=== PATIENT | male | born 1935 | race Caucasian/White ===

== ENCOUNTER 2022-05-17 14:58 | Inpatient (IN) | payer OTHER ==
[~2022-05-17] VITALS: Ht 172.7 cm; Wt 59.0 kg
[2022-05-17 16:16] LABS: Hematocrit 44.5 % (37.0-53.0); Hemoglobin 15.1 g/dL (13.5-17.5); Mean Corpuscular HGB 33.5 pg (26.0-34.0); Mean Corpuscular HGB Conc 33.9 g/dL (31.5-36.5); Mean Corpuscular Volume 99 fL (80-100); Mean Platelet Volume 10.9 fL (9.1-12.4); Platelet Count 303 K/mm3 (150-400); RDW Coefficient Variation 13.1 % (11.7-14.2); Red Blood Cell Count 4.51 M/mm3 (4.30-5.90)
[2022-05-17 16:17] LABS: White Blood Cell Count 12.19 K/mm3 (4.00-11.30)
[2022-05-17 16:37] LABS: Albumin/Globulin Ratio 0.8 (0.8-1.8); Bilirubin, Total 1.2 mg/dL (0.1-1.0); Bun/Creatinine Ratio 37.3 (12.0-20.0); Calcium, Blood 8.6 mg/dL (8.5-10.1); Creatinine, Blood 0.67 mg/dL (0.60-1.20); Globulin, Blood 3.6 g/dL (2.2-4.0); Potassium, Blood 4.3 mmol/L (3.5-5.5); Total Protein, Blood 6.6 g/dL (6.4-8.2)
[2022-05-17 16:37] LABS: BASOPHILS PERCENT MAN 0 % (0-2); EOSINOPHILS PERCENT MAN 0 % (0-6); LYMPHOCYTES PERCENT MAN 5 % (21-46); MONOCYTES ABSOLUTE MAN 0.48 K/mm3 (0.16-1.47); MONOCYTES PERCENT MAN 4 % (4-13); NEUTROPHILS ABSOLUTE MAN 11.09 K/mm3 (1.96-9.15); SEG NEUTROPHILS PERCENT MAN 91 % (41-73); TOTAL CELLS COUNTED 100
[2022-05-17 19:42] LABS: CHOL/HDL RATIO 2.7; Cholesterol 128 mg/dL (50-200); HDL Cholesterol 48 mg/dL (>39); LDL/HDL RATIO 1.4; Low Density Lipoprotein Chol 67 mg/dL (0-110); Triglycerides 63 mg/dL (30-160); Very Low Density Lipoprot Chol 12 mg/dL (6-32)
[2022-05-17] MEDS ORDERED: FINA5 PO (20:01)
[2022-05-17] MEDS ORDERED: TERA5 PO (20:03)
[2022-05-18 05:39] LABS: BASOPHILS ABSOLUTE AUTO 0.05 K/mm3 (0.00-0.23); BASOPHILS PERCENT AUTO 1 % (0-2); EOSINOPHILS ABSOLUTE AUTO 0.09 K/mm3 (0.00-0.68); EOSINOPHILS PERCENT AUTO 1 % (0-6); Hematocrit 44.8 % (37.0-53.0); Hemoglobin 15.2 g/dL (13.5-17.5); IMMATURE GRAN ABSOLUTE AUTO 0.06 K/mm3 (0.00-0.10); IMMATURE GRAN PERCENT AUTO 1 % (0-1); LYMPHOCYTES ABSOLUTE AUTO 0.94 K/mm3 (0.84-5.20); LYMPHOCYTES PERCENT AUTO 9 % (21-46); MONOCYTES ABSOLUTE AUTO 1.07 K/mm3 (0.16-1.47); MONOCYTES PERCENT AUTO 10 % (4-13); Mean Corpuscular HGB Conc 33.9 g/dL (31.5-36.5); Mean Corpuscular Volume 100 fL (80-100); Mean Platelet Volume 10.8 fL (9.1-12.4); NEUTROPHILS ABSOLUTE AUTO 8.61 K/mm3 (1.96-9.15); NEUTROPHILS PERCENT AUTO 80 % (41-73); Platelet Count 269 K/mm3 (150-400); RDW Coefficient Variation 13.1 % (11.7-14.2); RDW Standard Deviation 48.1 fL (35.1-46.3); Red Blood Cell Count 4.47 M/mm3 (4.30-5.90); White Blood Cell Count 10.82 K/mm3 (4.00-11.30)
[2022-05-18 05:59] LABS: Bun/Creatinine Ratio 28.5 (12.0-20.0); Calcium, Blood 8.3 mg/dL (8.5-10.1); Creatinine, Blood 0.63 mg/dL (0.60-1.20); Potassium, Blood 4.2 mmol/L (3.5-5.5)
--- NOTE | 2022-05-18 06:56 | NUR ---
END OF SHIFT NURSING REPORT - PM Mr Grande admitted to medical for increased SOB over the last week and elevated troponin 194. He presents with Bilateral LE edema, Alert and oriented to self, place and time. Had an episode of confusion this Am and discontinued IV. New IV inserted to Left AC 19g.
[2022-05-18 09:02] LABS: CHOL/HDL RATIO 2.7; Cholesterol 129 mg/dL (50-200); HDL Cholesterol 48 mg/dL (>39); LDL/HDL RATIO 1.4; Low Density Lipoprotein Chol 69 mg/dL (0-110); Triglycerides 59 mg/dL (30-160); Very Low Density Lipoprot Chol 11 mg/dL (6-32)
--- NOTE | 2022-05-18 19:52 | NUR ---
SHIFT SUMMARY- PT ALERT AND ORIENTED TO SELF AND FAMILY. HE SLEPT FOR MOST OF THE DAY, HAD BOWEL AND BLADDER INCONTINENCE T/O THE SHIFT. AT THE END OF THE SHIFT HE WOKE AND WANTED TO SIT IN A CHAIR. HE DID SO, THEN HE BECAME UPSET WITH STAFF ATTEMPTING TO HELP HIM TO THE BATHROOM. HE SEEMED TO BE MORE ALERT AND WAS ASSISTED TO THE BATHROOM THE OPT DOES NOT CALL FOR ASSISTANCE. HE DID HAVE A MEDIUM SIZED BM LIGHT BROWN AND PASTY. CASINO FLOOR SUPERVISOR ASSISTED HIM BACK TO BED AFTER. REPORT COMPLETED WITH NIGHT RN. NO S&S OF DISTRESS NOTED AT THIS TIME.
--- NOTE | 2022-05-19 07:36 | NUR ---
ASSUMED CARE OF PT- PT PULLED OUT HIS IV AT THE START OF THE NIGHT, HE REMOVED MEPILEX AND PULLED OFF TELE LEADS T/O THE NIGHT. PT SEEMS MORE CONFUSED THIS MORNING WHEN COMPARED TO YESTERDAY MORNING. CONFUSED TO PLACE, TIME AND SITUATION. WILL GET IV PLACED FOR IV LASIX DOSING WHEN PT ALLOWS. WILL CALL MD TO SEE IF PO LASIX IS A POSSIBILITY.
--- NOTE | 2022-05-19 07:40 | NUR ---
CALLED DR ARMSTRONG- SHE WILL REVIEW THE NIGHTS EVENTS AND POSSIBLY MAKE SOME CHANGES TO MEDS.
[2022-05-19 10:30] LABS: Albumin, Blood 3.4 g/dL (3.4-5.0); Anion Gap 5 mmol/L (6-16); Blood Urea Nitrogen 21 mg/dL (8-24); Bun/Creatinine Ratio 30.7 (12.0-20.0); CO2, Blood 34 mmol/L (21-32); Calcium, Blood 9.1 mg/dL (8.5-10.1); Chloride, Blood 97 mmol/L (98-108); Creatinine, Blood 0.68 mg/dL (0.60-1.20); Glomerular Filtration Rate 91 (60-); Glucose, Blood 89 mg/dL (70-99); Phosphorus, Blood 2.4 mg/dL (2.5-4.9); Potassium, Blood 4.2 mmol/L (3.5-5.5); Sodium, Blood 136 mmol/L (136-145)
[2022-05-19 12:30] LABS: Anti-Xa UFH, PHA Monitoring <0.10 IU/mL; Prothrombin Time Results 11.5 Sec (9.7-11.5)
--- NOTE | 2022-05-19 17:26 | NUR ---
pt resting in bed keeping neck forard and splinting. Respirations labored. Pt pale denies headache or ringining in ears. states his back is sore and hurts and his breathing feels a little rough. Review his smptoms and needs with nursing. Called his no answer. Called his son with updates. Sons and daughter came in for brief visit. Review of medication and pt needs.Son states steady decline of pt past few months. Of great concern his is declining and he is her caregiver. Theraputic conversation with son on stress of loosing parents. Son is going to discuss his fathers code status with his mother and brother. He confirmed that his father is not able to have complex deciions or retain information. Pt son called back shortly after we hung up. He discussed care with his mother and brother. Pt upset she thought he was DNR. They do not want life support. We discussed the reasonable care he is recieving will continue unless he declines then we will do comfort care. Had cary العراقي RN witness and confirm choice of DNR. Updated physician. will follow up. Suggest hospice referal discussion with physician of recent weight loss and PE may be concern for a malignancy. Goal is to reduce suffering and air hunger and support pt and his and they transition towards end of life.
--- NOTE | 2022-05-19 19:28 | NUR ---
SHIFT SUMMARY- PT ALERT AND ORIENTED TO SELF. T/O THE DAY HE KNEW HE WAS IN THE HOSPITAL, SPECIFICALLY [facility] IN [facility]. TOWARDS THE EVENING HE HAS BECOME A LITTLE MORE CONFUSED. THE PT IS CURRENTLY SITTING UP IN THE CHAIR, CALL LIGHT IN REACH, HEPARIN DRIP INFUSING IN THE LFA IV AND KPHOS INFUSING IN THE AI IV. PT C/O PAIN IN THE KPHOS IV AND RATE WAS REDDUCED TO 75ML/HR FOR PT TOLLERANCE. BEDSIDE REPORT COMPLETED WITH THE NIGHT RN. PT WAS INCREASED TO OXIMEIZER TODAY, HE REMOVED HIS O2 AND HIS SATS DROPPED TO THE 70'S, IT TOOK A WHILE AND A NON REBREATHER TO GET HIS SATS BACK TO A SAFE RANGE. RT WAS CONSULTED AND PT WAS SWITCHED FROM NC TO OXIMEIZER AT 5L. PT REMOVES HIS O2 FREQUENTLY, STAFF HAVE BEEN REMINDING HIM TO KEEP IT IN PLACE. PT HAS NOT ATTEMPTED TO REMOVE HIS IVS AT THIS TIME. NIGHT RN AWARE OF ALL.
[2022-05-20 01:40] LABS: Hematocrit 39.5 % (37.0-53.0); Hemoglobin 13.5 g/dL (13.5-17.5); Mean Corpuscular HGB 33.4 pg (26.0-34.0); Mean Corpuscular HGB Conc 34.2 g/dL (31.5-36.5); Mean Corpuscular Volume 98 fL (80-100); Mean Platelet Volume 10.7 fL (9.1-12.4); Platelet Count 282 K/mm3 (150-400); RDW Coefficient Variation 12.9 % (11.7-14.2); RDW Standard Deviation 46.1 fL (35.1-46.3); Red Blood Cell Count 4.04 M/mm3 (4.30-5.90)
[2022-05-20 02:38] LABS: Albumin, Blood 2.8 g/dL (3.4-5.0); Anion Gap 1 mmol/L (6-16); Blood Urea Nitrogen 25 mg/dL (8-24); Bun/Creatinine Ratio 31.8 (12.0-20.0); CO2, Blood 35 mmol/L (21-32); Calcium, Blood 8.6 mg/dL (8.5-10.1); Chloride, Blood 97 mmol/L (98-108); Creatinine, Blood 0.79 mg/dL (0.60-1.20); Glomerular Filtration Rate 87 (60-); Glucose, Blood 146 mg/dL (70-99); Phosphorus, Blood 4.5 mg/dL (2.5-4.9); Potassium, Blood 4.1 mmol/L (3.5-5.5); Sodium, Blood 133 mmol/L (136-145)
--- NOTE | 2022-05-20 16:02 | NUR ---
CALL PLACED TO RAUL BRITO AT THE [facility] TO VERIFY POTENTIAL PLACEMENT FOR THE PT AT THE [facility] FOR HOSPICE. PER RAUL, IF THE PT IS WILLING AND HAS A HOSPICE DIAGNOSIS HE CAN BE ADMITTED AT TO THE [facility] AT THE [facility]. ADVISED HER THAT OF LAST NIGHT, PT HAS NOT INTERESTED INPERSUING CC/HOSPICE AND WANTED TO STAY THE CURRENT COURSE OF TREATMTENT AND WILL RE-EVAL IF THE PT DOES NOT IMPROVE OR SHOWS FURTHER DECLINE. UPDATED JAMES ENGEL OF THIS CONVERSATION AND PALLIATIVE CARE WILL CONTINUE TO FOLLOW.
--- NOTE | 2022-05-20 17:31 | NUR ---
PT IS A/OX3, SELF, PLACE AND FAMILY, THE PT IS UP WITH MINIMAL ASSIST TO THE CHAIR AND TO THE BATHROOM. PT HAS BEEN COOPERATIVE AND HAS NOT PULLED AT HIS IV SO FAR THIS SHIFT. THE PT IS ON 4L/MIN O2 VIA NC AT THIS TIME. PT DENIESED ANY PAIN SO FAR THIS SHIFT. FAMILY WAS IN TO SEE THE PT TODAY. CALL LIGHT IN REACH BED ALARM ON.
[2022-05-21] MEDS ORDERED: ALBU90OI INH (01:03)
[2022-05-21] MEDS ORDERED: TRAM50 PO (01:04)
--- NOTE | 2022-05-21 03:00 | NUR ---
RECEIVED REPORT ON PT. P IS CURRENTLY SLEEPING,RESPIRATIONS EVEN AND UNLABORED. CALL LIGHT WITHIN REACH. WILL CONTINUE TO MONITOR UNTIL AM SHIFT.
--- NOTE | 2022-05-21 06:04 | NUR ---
PT WAS ATTEMPTING TO CLIMB OUT OF BED, HE NEEDED TO URINATE THIS AM. BED ALARM IS ON. ATTENDS IN PLACE. PT WAS ABLE TO URINATE 420 CC OF CLEAR YELLOW URINE. PVR DONE - SEE I&O'S. PT IS FRAIL IN HIS APPEARANCE, SKIN COLOR IS PALE. FLUIDS AT BEDSIDE. NO S/S OF DISTRESS NOTED. WILL CONTINUE TO MONITOR UNTIL AM SHIFT CHANGE.
--- NOTE | 2022-05-21 15:34 | NUR ---
Met with pt son today he brought in copies of his cards. Review of his fathers progress. Son states both parents have declined much this past year. He states pt has had a mslor weight loss and has declined in his cognition. Worsening memory and frailty. States he has had to take over his parents lives the can no longer funciton withour help. Review with in home caregiver.
--- NOTE | 2022-05-21 19:16 | NUR ---
PT ALERT NO S/S OF ACUTE DISTRESS, SAFETY MEASURES IN PLACE REPORT GIVEN TO ON COMING NURSE.
--- NOTE | 2022-05-22 04:56 | NUR ---
PT IS A&01-2, INCREASING AGITATION OVERNIGHT WANTING TO LEAVE WITH CONFUSION TO THE PLACE AND TIME, NO COMPLAINTS OF PAIN OVERNIGHT 4L NC SATS IN THE MID 90'S, VSS, CONTINUE POC
[2022-05-22 08:21] LABS: Hematocrit 33.1 % (37.0-53.0); Hemoglobin 11.4 g/dL (13.5-17.5); Mean Corpuscular HGB 33.9 pg (26.0-34.0); Mean Corpuscular HGB Conc 34.4 g/dL (31.5-36.5); Mean Corpuscular Volume 99 fL (80-100); Mean Platelet Volume 10.3 fL (9.1-12.4); Platelet Count 270 K/mm3 (150-400); RDW Coefficient Variation 12.9 % (11.7-14.2); RDW Standard Deviation 46.5 fL (35.1-46.3); Red Blood Cell Count 3.36 M/mm3 (4.30-5.90)
[2022-05-22 08:28] LABS: White Blood Cell Count 10.87 K/mm3 (4.00-11.30)
[2022-05-22 08:40] LABS: Albumin, Blood 2.8 g/dL (3.4-5.0); Anion Gap 0 mmol/L (6-16); Blood Urea Nitrogen 43 mg/dL (8-24); Bun/Creatinine Ratio 69.2 (12.0-20.0); CO2, Blood 36 mmol/L (21-32); Calcium, Blood 8.8 mg/dL (8.5-10.1); Chloride, Blood 103 mmol/L (98-108); Creatinine, Blood 0.62 mg/dL (0.60-1.20); Glomerular Filtration Rate 94 (60-); Glucose, Blood 106 mg/dL (70-99); Phosphorus, Blood 2.5 mg/dL (2.5-4.9); Potassium, Blood 4.2 mmol/L (3.5-5.5); Sodium, Blood 139 mmol/L (136-145)
--- NOTE | 2022-05-22 19:12 | NUR ---
PT ALERT NO S/S OF ACUTE DISTRESS, SAFETY MEASURES IN PLACE REPORT GIVEN TO ON COMING NURSE.
[2022-05-23 04:54] LABS: Hematocrit 31.8 % (37.0-53.0); Hemoglobin 10.7 g/dL (13.5-17.5); Mean Corpuscular HGB 33.6 pg (26.0-34.0); Mean Corpuscular HGB Conc 33.6 g/dL (31.5-36.5); Mean Corpuscular Volume 100 fL (80-100); Mean Platelet Volume 10.5 fL (9.1-12.4); Platelet Count 263 K/mm3 (150-400); RDW Coefficient Variation 12.9 % (11.7-14.2); RDW Standard Deviation 47.8 fL (35.1-46.3); Red Blood Cell Count 3.18 M/mm3 (4.30-5.90)
[2022-05-23 05:15] LABS: Albumin, Blood 2.8 g/dL (3.4-5.0); Anion Gap 2 mmol/L (6-16); Blood Urea Nitrogen 50 mg/dL (8-24); Bun/Creatinine Ratio 71.8 (12.0-20.0); CO2, Blood 34 mmol/L (21-32); Chloride, Blood 105 mmol/L (98-108); Glomerular Filtration Rate 90 (60-); Glucose, Blood 108 mg/dL (70-99); Phosphorus, Blood 2.9 mg/dL (2.5-4.9); Potassium, Blood 4.1 mmol/L (3.5-5.5); Sodium, Blood 141 mmol/L (136-145)
--- NOTE | 2022-05-23 06:13 | NUR ---
PATIENT CONFUSED AT TIMES, EASILY REDIRECTED. BED ALARM ON, SAFETY PRECAUTIONS IN PLACE. STRAIGHT CATH AT 0300 WITH 800 ML YELLOW URINE OUTPUT. O2 WAS INCREASED TO 6L NC AT 2000 BY RT DUE TO SATS OF 88%. PATIENT REMAINS ON 6L NC OVERNIGHT WITH SATS IN THE MID 90'S. INCREASED WOB NOTED ON EXERTION.
--- NOTE | 2022-05-23 16:05 | NUR ---
STRAIGHT CATH PT, 400ML OUT. STRONG CONCENTRATE SMELL, NEFTALI URINE. WILL CONTINUE TO MONITOR
--- NOTE | 2022-05-23 17:37 | NUR ---
SHIFT SUMMARY- PT A@O X2, KNOWS SELF, , WHERE HE IS BUT STRUGGLES WITH DATE AND CURRENT EVENTS. AM SHIFT RAPID BREATHING NOTED, CONTACTED C/O NECK PAIN, TREATED PER EMAR. REDIRECTABLE WHEN ATTEMPTING TO GET UP OUT OF BED. BED ALARM ON. MEPOLIX REPLACED OVER COXXYX WOUND. BLADDER CARE- STRAIGHT CATH 400 ML OUT. O2 4L, SATING 97-100%. APPETITE POOR, ENCOURAUGED FEEDING. CALL LIGHT IN REACH.
--- NOTE | 2022-05-24 04:48 | NUR ---
LINE TENDER FLAKEBOARD SUMMARY NO ACUTE EVENTS THIS SHIFT. A&O TO SELF. PATIENT EFFECTIVELY COMMUNICATES NEEDS. VSS. RR EVEN AND UNLABORED ON 4L O2. TELE REVEALS SINUS RHYTHM, HR 90'S. BED ALARM HAS BEEN MAINTAINED, BUT NO ATTEMPTS TO SELF-TRANSFER OUT OF BED HAVE BEEN MADE. PATIENT HAS APPEARED TO BE RESTING COMFORTABLY IN BED WITHOUT SIGNS OF RESTLESSNESS OR AGITATION. Q SHIFT STRAIGHT CATHETERIZING DUE TO URINARY RETENTION. BED LOW AND LOCKED. CALL LIGHT WITHIN REACH. THIS RN WILL CONTINUE TO MONITOR.
[2022-05-24 05:15] LABS: Hematocrit 30.5 % (37.0-53.0); Hemoglobin 10.1 g/dL (13.5-17.5); Mean Corpuscular HGB 33.2 pg (26.0-34.0); Mean Corpuscular HGB Conc 33.1 g/dL (31.5-36.5); Mean Corpuscular Volume 100 fL (80-100); Mean Platelet Volume 10.6 fL (9.1-12.4); Platelet Count 295 K/mm3 (150-400); RDW Standard Deviation 47.6 fL (35.1-46.3); Red Blood Cell Count 3.04 M/mm3 (4.30-5.90)
[2022-05-24 05:56] LABS: Percent Saturation 57.3 % (20.0-50.0); Thyroid Stimulating Hormone 1.71 uIU/mL (0.360-4.800)
[2022-05-24 05:57] LABS: Albumin, Blood 2.9 g/dL (3.4-5.0); Bun/Creatinine Ratio 52.8 (12.0-20.0); Calcium, Blood 9.3 mg/dL (8.5-10.1); Creatinine, Blood 0.76 mg/dL (0.60-1.20); Globulin, Blood 2.9 g/dL (2.2-4.0); Potassium, Blood 3.7 mmol/L (3.5-5.5); Total Protein, Blood 5.8 g/dL (6.4-8.2)
--- NOTE | 2022-05-24 17:56 | NUR ---
SHIFT SUMMARY PATIET MEDICATED X1 FOR PAIN. PATIENT DENIES NAUSEA AND SHORTNESS OF BREATH. PATIENT DOES OCCASSIONALLY BREATH RAPIDLY, BUT DOES NOT REPORT DISTRESS OR DESAT. PATIENT ON 2L VIA N/C, SATURATING ABOVE 90%. PATIENT IS A SBA WITH THE FWW. PATIENT IS A&O 1-2. PATIENT COULD TELL ME HE WAS IN THE HOSPITAL, BUT NOT WHICH ONE OR WHICH TOWN. HE DID NOT KNOW DATE OR EVENT. PATIENT FOLLOWS DIRECTIONS WELL AND IS EASILY REDIRECTED. BLADDER SCAN SHOWED 650ML, PATIENT DID VOID, POST VOID SCAN WAS 360MLS. STRAIGHT CATH DONE WITH 400MLS RETURN. PATIENT TOLERATED WELL. PATIENT HAS VERY POOR PO INTAKE. PATIENT IS PLEASANT AND COOPERATIVE WITH CARE.
[2022-05-25 03:06] LABS: Source, Urine Foley catheter
[2022-05-25 03:07] LABS: Bilirubin, Urine Neg (Neg); Blood, Urine 3+ (Neg); Glucose Qualitative, Urine Neg (Neg); Ketones, Urine Neg (Neg); Leukocyte Esterase, Urine Neg (Neg); Nitrite, Urine Pos (Neg); Protein, Urine 2+ (Neg); Specific Gravity, Urine 1.015 (1.003-1.022); Urobilinogen, Urine 2+ (Normal); pH, Urine 6.5 (5.0-8.0)
[2022-05-25 04:29] LABS: Appearance, Urine Hazy (Clear); Color, Urine Yellow (P-Yellow)
[2022-05-25 04:32] LABS: Amorphous Mod (0-Heavy); Bacteria Mod /hpf; Calcium Oxalate Crystals Rare /hpf; Red Blood Cells, Urine 0-2 /hpf (0-2); Squamous Epithelial Cells Rare /hpf (Few)
--- NOTE | 2022-05-25 05:28 | NUR ---
POACHER OPERATOR SUMMARY A/OX TO SELF. PT ON 1.5L O2 AT START OF SHIFT. RT AT BEDSIDE; SATS IN MID 80'S; BUMPED BACK TO 3L. PILLS W/APPLESAUCE; DIFFICULTY SWALLING; PT WANTED TO CHEW AND SPIT OUT--MAY NEED CRUSHED MEDS. PT RESTLESS AND OOB IMPULSIVELY AT TIMES. 2240 BLADDER SCAN SHOWED 109MLS IN BLADDER. PT PULLING OF NC WITH INCREASED CONFUSION--REG ROUNDING T/ASSESS O2 STATUS. 0200 BLADDER SCAN OF 440. PT UNABLE TO VOID. CALL TO DR--NEW ORDER FOR GREENBERG. PLACED 16 COUDE W/SOME DIFFICULTY. PT TOLERATED WELL. URINE SAMPLE SENT TO LAB; URINE CLOUDY, MALODOROUS--CULTURE INDICATED. PT MOSTLY UNABLE TO COMMUNICATE NEEDS, ABLE TO FOLLOW SOME COMMANDS. BED LOCKED/LOW AND ALARM SET. CALL LIGHT ACCESSIBLE.
--- NOTE | 2022-05-25 18:11 | NUR ---
PT IS A/OX2-3, SELF, PLACE AND FAMILY. THE PT IS UP WITH MINIMAL ASSIST TO THE BATHROOM AND TO THE CHAIR. THE PT APPEARS TO BE BREATHING EASILY AT REST ON 3L/MIN O2. PT IS SOB WITH ACTIVITY. THE PT HAD 2 SMALL HARD BLACK COLORED STOOLS TODAY. PT HAS GREENBERG CATHETER WITH DARK COLORED URINE. THE PT WAS MEDICATED FOR PAIN WITH TYLENOL X1 THIS AM AND WITH OXYCODONE X1 THIS EVENING FOR PAIN IN HIS NECK AND BACK. P[TS RIGHT BUTTOCKS WOUND CLEANED AND NEM GAUZE DRESSING APPLIED. CALL LIGHT IN REACH, CHAIR ALARM ON.
--- NOTE | 2022-05-26 03:22 | NUR ---
SHIFT SUMMARY NOC PT A/O X 3. PT PLEASANT AND COOPERATIVE WITH CARE. PT MOVED FROM MEDICAL FLOOR TO SCU BECAUSE OF FREQUENT ATTEMPTS OOB UNSAFELY. PT HAS NOT ATTEMPTED OOB BUT LIKES TO SIT AT BEDSIDE FOR BRIEF PERIODS. PT IS ON 3L/NC SPO2 > 90%. PT HAS GREENBERG IN PLACE DRAINING TEA COLORED URINE TO GRAVITY. PT IS CURRENTLY RESTING WITH BED ALARM ON, BED IN LOWEST POSITION, AND CALL LIGHT WITHIN REACH. WCTM.
--- NOTE | 2022-05-26 16:21 | NUR ---
SHIFT SUMMARY PT A&OX1-2 AND PLEASANT. NO ACUTE CHANGES. PT UP TO CHAIR IN AM AND TOLERATED WELL. PT ON 3L O2 AND DESATS QUICKLY WITHOUT OXYGEN. PT HAD COGNITIVE EVAL COMPLETED BY OT AND SCORED 13 OUT OF 30. FAMILY AT BEDSIDE DURING THE AFTERNOON. COOPERATIVE OF CARE. VSS. BED IN LOWEST POSITION AND CALL LIGHT IN REACH.
--- NOTE | 2022-05-27 06:00 | NUR ---
END OF SHIFT NURSING REPORT - PM Mr Grande was admitted to medical for increased SOB over the last week, Bilat LE edema and elevated troponin 194. CT showed bilateral PE and was on heparin fgtt brfore convering to erica PO. He is Oriented to himself and place, and confused to time and purpose. No acute events overnight. Plan to discharge to [place] with Hospice.
--- NOTE | 2022-05-27 16:19 | NUR ---
SHIFT SUMMARY PATIENT IS ALERT AND ORIENTED X3. PATIENT HAS HAD NO ACUTE EVENTS THIS SHIFT. VITAL SIGNS REVIEWED. VITAL SIGNS REVIEWED. PATIENT IS ON 5L NC. PATIENT HAS BEEN UP IN CHAIR MOST OF SHIFT. PATIENTS GREENBERG IS PATENT AND DRAINING DARK URINE TO GRAVITY. PATIENT HAS NOT COMPLAINED OF PAIN, NAUSEA, SOB OR VOMITTING THIS SHIFT. PATIENT IS PENDING HOSPICE PLACEMENT. BED IN LOCKED AND LOWEST POSITION. CALL LIGHT IN PLACE. WILL MONITOR UNTIL SHIFT CHANGE.
--- NOTE | 2022-05-28 06:48 | NUR ---
END OF SHIFT NURSING REPORT - PM Mr Grande was admitted to medical for increased SOB over the last week, Bilat LE edema and elevated troponin 194. CT showed bilateral PE and was on heparin gtt before convering to PO-Eliquis. He is Oriented to himself and place, and confused to time and purpose. Was up to bedside chair between 2am-3pm per his request. No acute events overnight. Discharge plan is for [place] [facility] care.
--- NOTE | 2022-05-29 06:00 | NUR ---
END OF SHIFT NURSING REPORT - PM Mr Grande was admitted to medical for increased SOB over the last week, Bilat LE edema and elevated troponin 194. CT showed bilateral PE and was on heparin gtt before convering to PO-Eliquis. He is Oriented to himself and place, and confused to time and purpose. Had x2 BM, dark and formed stool. No acute events overnight. Discharge is plan includes placement at [facility] with hospice. Plan to keep akers in place upon Dc.
[2022-05-29 09:00] LABS: Hemoglobin 10.5 g/dL (13.5-17.5); Platelet Count 414 K/mm3 (150-400); RDW Coefficient Variation 13.2 % (11.7-14.2)
[2022-05-29 09:06] LABS: Hematocrit 30.6 % (37.0-53.0); Mean Corpuscular HGB 33.7 pg (26.0-34.0); Mean Corpuscular HGB Conc 34.3 g/dL (31.5-36.5); Mean Corpuscular Volume 98 fL (80-100); Mean Platelet Volume 10.7 fL (9.1-12.4); RDW Standard Deviation 46.8 fL (35.1-46.3); Red Blood Cell Count 3.12 M/mm3 (4.30-5.90)
[2022-05-29 09:07] LABS: White Blood Cell Count 11.23 K/mm3 (4.00-11.30)
[2022-05-29 09:19] LABS: Albumin, Blood 2.9 g/dL (3.4-5.0); Anion Gap 0 mmol/L (6-16); Blood Urea Nitrogen 23 mg/dL (8-24); Bun/Creatinine Ratio 36.2 (12.0-20.0); CO2, Blood 36 mmol/L (21-32); Calcium, Blood 8.8 mg/dL (8.5-10.1); Chloride, Blood 103 mmol/L (98-108); Creatinine, Blood 0.64 mg/dL (0.60-1.20); Glomerular Filtration Rate 93 (60-); Glucose, Blood 112 mg/dL (70-99); Phosphorus, Blood 2.8 mg/dL (2.5-4.9); Potassium, Blood 4.5 mmol/L (3.5-5.5); Sodium, Blood 139 mmol/L (136-145)
--- NOTE | 2022-05-29 16:58 | NUR ---
Shift Summary AOx2 to hospital and self. Family in to visit. Patient requesting to d/c soon because "I've been in the hospital for days now" per patient. Up with 1p FWW and gaitbelt. Impulsive and forgetful, setting bed/chair alarm off. Good appetite. Denies pain. Overall good day.
--- NOTE | 2022-05-30 06:00 | NUR ---
END OF SHIFT NURSING REPORT - PM Mr Grande was admitted to medical for increased SOB over the last week, Bilat LE edema and elevated troponin 194. CT showed bilateral PE and was on heparin gtt before convering to PO-Eliquis. He is Oriented to himself and place, and confused to time and purpose. Multiple episodes of confusion through the night, and was up around 0100 per his request and sat at bedside chair for 30 minutes. Patient pulled his PIV d/t confusion, PLAN ON OBTAINING AN ORDER FOR NO IV. Pending placement at memory care facility. The [place] and [facility] placement did not materialize.
--- NOTE | 2022-05-30 13:15 | NUR ---
No iv access order Received T.O for the above order from Dr. Diez.
--- NOTE | 2022-05-30 17:19 | NUR ---
Shift Summary C/O 3/10 neck pain and 5/10 back pain. Offered tramadol and tylenol, patient preferred tylenol which was effective. Appetite is okay. More alert today, less impulsive and acutally waiting for staff assistance.
--- NOTE | 2022-05-31 06:00 | NUR ---
END OF SHIFT NURSING REPORT - PM Admitted for SOB, bilateral edema and elevated troponin [address] showed bilateral PE on 05/19 and was started on heparin gtt for 24 hrs then converted to Eliquis PO. He is alert to self and place and confused to time and purpose. X1 assist out of bed d/t weakness and deconditioning. Bryan intact and draining tea colored urine.
--- NOTE | 2022-05-31 16:42 | NUR ---
PT PLEASANT COOP T/O MOST OF DAY. STATES INTENT TO LEAVE THIS PLACE. SON IN TO SEE HIM THIS AM. STATES HE IS PLANNING TO TAKE HIM HOME IN COUPLE DAYS. 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 HE FEELS COMFORTABLE TO TAKE HIM HOME. PT HAS BEEN IN CHAIR MUCH OF DAY, GREENBERG DRAINING TEA COLORED FLUID. NO NEW CONCERNS NOTED. BED IN LOW POSITION, CDALL LITE IN REACH, BED ALARM ON FOR SAFETY
--- NOTE | 2022-05-31 21:58 | NUR ---
RECEIVED PAIN MED A WHILE AGO, THEN SOME 10 MIN LATER, TRIED TO GET OUT OF BED. STATED HE WAS HAVING DIFICULTY BREATING. SAT UP, BACK PATTING WITH CUPPED HAND A FEW TIMES. MEASURES EFFECTIVE. RT NOTIFIED AND RT AT CHAIR SIDE. TREATMENT GIVEN, SATING IN THE 90'S. VOICED FEELING BETTER. NO NOTED S/S ACUTE DISTRESS AT THIS TIME. CALL LIGHT IN REACH. WILL CONTINUE TO MONITOR. CHAIR ALARM ON, ON CAMERA FOR SAFETY.
--- NOTE | 2022-05-31 23:06 | NUR ---
ANXIOUS APPEARING, VOICED SOB. O2 PER NC CONTINUOUS AT 4L/MIN. RT NOTIFIED, INSTRUCTED TO PLACE NONREBREATHER ON PT AND THEY WOULD CHECK PT
--- NOTE | 2022-05-31 23:16 | NUR ---
PLACED ON NONREBREATHER, RT AT [facility]. INSTRUCTED TO INCREASE O2 ALL THE WAY UP, PT HAD BEEN DESATING IN THE HIGH 60'S - LOW 70'S. O2 SATS INCREASED TO 92. RT CONTINUES TO ASSESS PT.
--- NOTE | 2022-05-31 23:38 | NUR ---
RT ASSESSED PT. SUGGESTED CXR. MD NOTIFIED AND CXR ODERED. RADIOLOGY NOTIFIED. PT ON 5L/MIN PER NC
--- NOTE | 2022-05-31 23:58 | NUR ---
CHEST X RAY WAS ORDERED AND DONE. AWAKE AT THIS TIME. VOICED WAS BREATHING BETTER, STILL CONGESTED SOUNDING. CALL LIGHT IN REACH. CHEERFUL, JOKES WITH STAFF
--- NOTE | 2022-06-01 03:42 | NUR ---
FILER HELPER SUMMARY VSS. ALTHOUGH CONTINUES ON FLUID RESTRICTION, AM RN REPORTED PT NOT DRINKING ENOUGH. SO PT WAS ENCOURAGED TO DRINK MORE. NOTE PT DRINKS SMALL AMTS WHEN TAKING MEDS. HAS BEEN AWAKE AT INTERVALS THROUGHOUT SHIFT. HAD SOME EPISODES OF SOB, O2 WAS ICREASED, A NONREBREATHER WAS USED AT ONE POINT, AND RT EVALUATED PT A FEW TIMES. MD NOTIFIED AND C X R ORDERED/DONE. STILL AWAITING X RAY RESULTS. AFTER A FEW EPISODES OF SOB, INTERVENTIONS WERE SUCCESSFUL AND HAS BEEN RESTING INTERMITTENTLY SINCE WITHOUT VOICED SOB. NEGINLTY IN BED RESTING QUIETLY. CAMERA ON. CALL LIGHT IN REACH. WILL CONTINUE TO MONITOR
--- NOTE | 2022-06-01 17:01 | NUR ---
PT RESTING COMF, WAITING FOR PLACEMENT C HOSPICE. NO CONCERNS AT THIS TIME.
--- NOTE | 2022-06-01 17:11 | NUR ---
PT IS PLEASANTLY CONFUSED AND AOX1. COOPERATIVE OF CARE, BUT VERY IMPULSIVE. PT NEEDS BED AND CHAIR ALARMS HE WILL NOT CALL OUT.PT IS A ONE PERSON WITH WALKER TO RESTOOM. GREENBERG IS PATIENT. CONTINUES TO DESAT IF ON ROOM AIR INTO THE 70s. WITH HIGH FLOW 6L PT IS LOW 90s. BED ALARM IN PLACE WILL CONTINUE TO MONITOR.
--- NOTE | 2022-06-02 04:11 | NUR ---
SHIFT SUMMARY; NO ACUTE CHANGES OVERNIGHT. THE PT HAS BEEN RESTING IN THE CHAIR FOR THE MAJORITY OF THE NIGHT. HELPED PT GET INTO BED WHERE HE RESTED FOR ABOUT 1 HOUR BEFORE REQUESTING TO GET BACK INTO THE CHAIR. THE PT HAS BEEN UP MOST OF THE NIGHT. THE PT DENIES ANY PAIN, HEATING PAD ON PTS BACK FOR COMFORT AND WARMTH. PT IS AXO TO SELF ONLY, PLEASANTLY CONFUSED AND ABLE TO FOLLOW DIRECTION. THE PT REMAINS ON 6L HIGHFLOW NC, O2 SATS HAVE BEEN >94%. THE PT IS DYSPNEIC WITH EXERTION. GREENBERG IN PLACE, TEA COLORED URINE DRAINING TO GRAVITY. CURRENTLY THE PT IS SITTING IN THE RECLINER AT BEDSIDE WITH THE CHAIR ALARM ENGAGED, WHEELS LOCKED AND THE CALL LIGHT WITHIN REACH.
[2022-06-02] MEDS ORDERED: Acetaminophen650 M1 PO (14:05)
[2022-06-02] MEDS ORDERED: DOCU100 PO (14:06)
[2022-06-02] MEDS ORDERED: ELIQUIS5 M2 PO (14:06)
[2022-06-02] MEDS ORDERED: QUET25 PO (14:07)
[2022-06-02] MEDS ORDERED: SENN187 PO (14:08)
[2022-06-02] MEDS ORDERED: SPIRIVA RESPIMAT4 G3 INH (14:09)
--- NOTE | 2022-06-02 14:31 | NUR ---
SPN DAY SHIFT SUMMARY ASSUMED CARE OF Pt AT 0645 WITH PRECEPTOR MIGUEL BRITO. PT WAS UP TO RECLINER IN ROOM. OT CAME TO SEE PT AT 0757, PT WAS MEDICATED WITH PAIN MEDICATION 30 MIN PRIOR TO PT BEING GIVEN A SHOWER WITH THE MEDICAL DELIVERY TECHNICIAN AND THIS SAAS ARCHITECT. 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 IT WAS ALSO NOTED DURING SKIN ASSESSMEN THAT THE PAITNETS FEET AT AT +1 EDEMA. PATIENT DID NOT EAT MUCH TODAY 10% FOR BREAKFAST AND 15% FOR LUNCH. PT IS BEING DISCHARGED TO SONS HOME ON HOSPICE CARE AROUND 1400. PT IS UP IN RECLINER RESTING, CALL LIGHT IS IN REACH.
--- NOTE | 2022-06-02 16:57 | NUR ---
PT DISCHARGED AT 1610 TODAY WITH [facility] TO TRANSPORT. PACKET SENT WITH PT. FAMILY TO BE HOME WHEN PT ARRIVES AND HOSPICE TO DO HOME EVALUATION WHEN PT IS HOME. NO DISTRESS NOTED. AGREE WITH AIRCRAFT COMMUNICATOR SHIFT SUMMARY NOTE.
== END 2022-06-02 16:17 | disposition hospice, home (50) | DRG 175 ==
LOC: ER 14:58 → MEDS 14:59
PROVIDERS: Internal Medicine; Student in an Organized Health Care Education/Training Program; ADMIT Family Medicine
DX: I26.99 Other pulmonary embolism without acute cor pulmonale (principal); I21.A1 Myocardial infarction type 2; J96.01 Acute respiratory failure with hypoxia; I50.31 Acute diastolic (congestive) heart failure; R64 Cachexia; K56.49 Other impaction of intestine; Z68.1 Body mass index [BMI] 19.9 or less, adult; N39.0 Urinary tract infection, site not specified; C34.90 Malignant neoplasm of unspecified part of unspecified bronchus or lung; E44.0 Moderate protein-calorie malnutrition; Z51.5 Encounter for palliative care; M62.3 Immobility syndrome (paraplegic); Z66 Do not resuscitate; R62.7 Adult failure to thrive; G31.84 Mild cognitive impairment of uncertain or unknown etiology; K59.00 Constipation, unspecified; N40.1 Benign prostatic hyperplasia with lower urinary tract symptoms; R33.8 Other retention of urine; D72.829 Elevated white blood cell count, unspecified; I71.43 Infrarenal abdominal aortic aneurysm, without rupture; E88.09 Other disorders of plasma-protein metabolism, not elsewhere classified; D63.8 Anemia in other chronic diseases classified elsewhere; M54.2 Cervicalgia; Z74.01 Bed confinement status
CPT/HCPCS: 36415; 71045; 71046; 71260; 74018; 80048; 80053; 80061; 80069; 81001; 82728; 83540; 83550; 83880; 84443; 84484; 85025; 85027; 85520; 85610; 85730; 87086; 93005; 93010; 93306; 94640; 94664; 94760; 96374; 97110; 97129; 97130; 97162; 97166; 97530; 97535; 99285-25; A9270; G0378; J1644; J1940; J7060; Q9967

== ENCOUNTER 2022-06-04 11:05 | Observation (INO) | payer OTHER ==
[~2022-06-04] VITALS: Ht 175.3 cm; Wt 63.5 kg
[~2022-06-04 11:05] MED LIST: ALBU90OI INH; Acetaminophen650 M1 PO; DOCU100 PO; ELIQUIS5 M2 PO; FINA5 PO; QUET25 PO; SENN187 PO; SPIRIVA RESPIMAT4 G3 INH; TERA5 PO; TRAM50 PO
--- NOTE | 2022-06-04 14:16 | NUR ---
ED Palliative Care Consult Spoke with Dr Eli and discussed case. Pt to the ED due to family dynamics and concerns regarding proper care for Pt. Pt is admitted with [facility]. Called and spoke with Pt's slate cutter operator from [facility] to reports Pt's ED visit. She requests to be kept updated on plan. Pt resting on gurney with his eyes closed. Pt remains with his eyes closed and does not respond to loud verbal stimuli. Spoke with Pt's Primary ED RN Estella. She reports family gave Pt Ativan shortly before coming into ED. Called and spoke with Pt's spouse. Offered therapeutic listening as she reports that Pt was D/C from the hospital to son Daryl's house with [facility]. She reports Daryl is caring for 2 autistic children at home and is not able to care for Pt properly and Pt is living in filthy conditions. She requesting placement to facility with continued hospice services. She request if Pt needs to be admitted that Pt receives comfort measures only. Spoke with RN Rashid Hagen who was involved with Pt D/C plan from recent hospital stay. She reports D/C was set up for Pt to go to facility via payment sourse with [place] with hospice services. Ultimately family decided last minute allow Pt to D/C home with brittany Brito. Spoke with ED Speedometer Mechanic Tersesa and relayed information. Teressa will reach out to [facility], and [place]. Teressa will also keep [facility] up to date. Plan for Pt to be placed with hospice services. If Pt requires admission until then, Spouse requests comfort measures only. Palliative Care will remain available
--- NOTE | 2022-06-04 20:10 | NUR ---
PT ARRIVED TO THE FLOOR AT 2009, TRANSFERED VIA SLIDER SHEET FROM [facility]. 8L NC IN PLACE AT TIME OF ARRIVAL.
--- NOTE | 2022-06-04 20:29 | NUR ---
PT ARRIVED TO THE MEDICAL FLOOR VIA GURNEY FROM THE ER. PT TRANSFERED TO THE BED DURING SKIN CHECK AND ATTENDS CHANGE THE PT . CHARGE NURSE VITA NOTIFIED AND VERIFIED . TIME OF WAS 2016
== END 2022-06-04 20:17 ==
LOC: ER 11:05 → MEDS 11:06
PROVIDERS: ADMIT Student in an Organized Health Care Education/Training Program
DX: I26.99 Other pulmonary embolism without acute cor pulmonale (principal); I50.30 Unspecified diastolic (congestive) heart failure; E44.0 Moderate protein-calorie malnutrition; G31.84 Mild cognitive impairment of uncertain or unknown etiology; Z66 Do not resuscitate; Z68.20 Body mass index [BMI] 20.0-20.9, adult; Z88.8 Allergy status to other drugs, medicaments and biological substances; Z91.040 Latex allergy status; Z79.899 Other long term (current) drug therapy; Z79.01 Long term (current) use of anticoagulants; Z74.01 Bed confinement status
CPT/HCPCS: 99283; A9270